=== PATIENT | female | born 1975 | race Two or more races ===

== ENCOUNTER 2018-01-20 09:23 | Emergency (ER) | payer SELFPAY ==
[2018-01-20 09:43] VITALS: O2SAT 100
--- NOTE | 2018-01-20 10:40 | C.PDOC ---
History Of Present Illness 42 y/o female presents to ED with c/o itchy scratchy throat associated with dry cough and with c/o of rash to fold of scar, groin area and under arms. Patient denies fever, chills, abdominal pain, nausea, vomiting or any other complaints at this time. Time Seen by Provider: 01/20/18 10:02 Chief Complaint (Nursing): Abnormal Skin Integrity History Per: Patient History/Exam Limitations: no limitations Onset/Duration Of Symptoms: Days Current Symptoms Are (Timing): Still Present Past Medical History Reviewed: Historical Data, Nursing Documentation, Vital Signs Vital Signs: Last Vital Signs Temp 97.8 F 01/20/18 09:40 Pulse 69 01/20/18 09:40 Resp 16 01/20/18 09:40 BP 123/66 01/20/18 09:40 Pulse Ox 100 01/20/18 10:57 - Medical History PMH: No Chronic Diseases Surgical History: No Surg Hx, (x 1) Family History: States: No Known Family Hx - Social History Hx Tobacco Use: No Hx Alcohol Use: No Hx Substance Use: No - Immunization History Hx Tetanus Toxoid Vaccination: No Hx Influenza Vaccination: No Hx Pneumococcal Vaccination: No Review Of Systems Constitutional: Negative for: Fever, Chills ENT: Positive for: Throat Pain Respiratory: Positive for: Cough Gastrointestinal: Negative for: Nausea, Vomiting Skin: Positive for: Rash Physical Exam - Physical Exam Appears: Non-toxic, No Acute Distress Skin: Warm, Dry, Rash (red, raised and pruritic to crease of abdomen along c- section scar, groin area and axilla ) Head: Atraumatic, Normacephalic Eye(s): bilateral: Normal Inspection Oral Mucosa: Moist Throat: Erythema, No Exudate, No Drooling Neck: Normal ROM, Supple Cardiovascular: Rhythm Regular Respiratory: Normal Breath Sounds, No Rales, No Rhonchi, No Wheezing Gastrointestinal/Abdominal: Soft, No Tenderness, No Guarding, No Rebound Neurological/Psych: Oriented x3, Normal Speech, Normal Cognition ED Course And Treatment O2 Sat by Pulse Oximetry: 100 (RA) Pulse Ox Interpretation: Normal Progress Note: Differential: Fungal infection VS Heart rash VS Urticaria. Claritin given for seasonal allergies and Antifungal oitment Disposition Counseled Patient/Family Regarding: Diagnosis, Need For Followup, Rx Given - Disposition Referrals: [facility] [Outside] Disposition: HOME/ ROUTINE Disposition Time: 10:36 Condition: STABLE Prescriptions: Loratadine [Claritin] 10 mg PO DAILY #15 tab Nystatin/Triamcinolone [Mycolog Ointment] 1 appl TP TID #1 tube Instructions: Seasonal Allergies in Adults, Skin Rash (DC) Forms: [facility] (Rw[place]an), Work Excuse - POA Present On Arrival: None - Clinical Impression Clinical Impression: Fungal infection, Seasonal allergies - Scribe Statement The provider has reviewed the documentation as recorded by the Scribevette Barrios All medical record entries made by the Yovanaibevette were at my direction and personally dictated by me. I have reviewed the chart and agree that the record accurately reflects my personal performance of the history, physical exam, medical decision making, and the department course for this patient. I have also personally directed, reviewed, and agree with the discharge instructions and disposition.
[2018-01-20 11:01] VITALS: BP 111/72; PULSE 62; RESP 18; TEMP 98.2
== END 2018-01-20 11:00 | disposition home or self-care (01) ==
LOC: C.ER 09:23
DX: J30.2 Other seasonal allergic rhinitis (principal); B49 Unspecified mycosis

== ENCOUNTER 2018-02-28 22:22 | Emergency (ER) | payer OTHER ==
[2018-02-28 22:40] VITALS: RESP 18; TEMP 99.1
[2018-02-28] MEDS ORDERED: Bacitracin 500 Units/gm Oint Foilpak UD TOP ONE (22:56)
[2018-02-28] MEDS ORDERED: Bacitracin 500 Units/gm Oint Foilpak UD ONE (23:08)
--- NOTE | 2018-02-28 23:33 | C.PDOC ---
History Of Present Illness Patient is a 42 y/o female who presents to the ED with a complaint of left lower leg pain that radiates to left foot. Patient reports to have been walking when she hit leg on an opening door (metal cellar door ) Denies any other injuries or physical complaints at this time. Time Seen by Provider: 02/28/18 22:40 Chief Complaint (Nursing): Lower Extremity Problem/Injury History Per: Patient History/Exam Limitations: no limitations Onset/Duration Of Symptoms: Hrs Current Symptoms Are (Timing): Still Present Recent travel outside of the [place]: No Past Medical History Reviewed: Historical Data, Nursing Documentation, Vital Signs Vital Signs: Last Vital Signs Temp 99.1 F 02/28/18 22:35 Pulse 80 02/28/18 23:47 Resp 18 02/28/18 23:47 BP 115/76 02/28/18 23:47 Pulse Ox 97 03/01/18 03:15 - Medical History PMH: No Chronic Diseases Surgical History: (x 1) Family History: States: No Known Family Hx - Social History Hx Tobacco Use: No Hx Alcohol Use: No Hx Substance Use: No - Immunization History Hx Tetanus Toxoid Vaccination: No Hx Influenza Vaccination: No Hx Pneumococcal Vaccination: No Review Of Systems Musculoskeletal: Positive for: Leg Pain (left lower leg), Foot Pain (pain radiated to left foot) Physical Exam - Physical Exam Appears: Non-toxic, No Acute Distress Skin: Normal Color, Warm, Dry, No Ecchymosis, Other (dime-sized abrasion to distal third of left tibia) Head: Atraumatic, Normacephalic Oral Mucosa: Moist Chest: Symmetrical Cardiovascular: Rhythm Regular, No Murmur Respiratory: Normal Breath Sounds, No Rales, No Rhonchi, No Wheezing Gastrointestinal/Abdominal: Soft, No Tenderness Extremity: Normal ROM (full range of motion of foot), Tenderness (surrounding abrasion on distal third of left tibia), No Swelling Pulses: Left Femoral: Normal, Left Dorsalis Pedis: Normal Neurological/Psych: Oriented x3, Normal Speech, Normal Cognition Gait: Steady ED Course And Treatment O2 Sat by Pulse Oximetry: 97 Progress Note: Bacitracin and ibuprofin adminsitered. Left tibia/fibula XR ordered. On re-eval, patient resting comfortably and stable for discharge. XR negative. Medical Decision Making Medical Decision Making: no fx noted on xray,. tdap utd. d/c with analgesics, Disposition Counseled Patient/Family Regarding: Studies Performed, Diagnosis, Need For Followup - Disposition Disposition: HOME/ ROUTINE Disposition Time: 23:32 Condition: GOOD Additional Instructions: Short ibuprofeno para el dolor segn lo recetado. Aplique bacitracin a la abrasi n 2 veces al da. Mantenga la pierna elevada cuando sea posible. Take ibuprofen for pain as prescribed., Apply bacitracin to abrasion 2 times a day. Keep leg elevated when possible. Prescriptions: Ibuprofen [Motrin] 600 mg PO TID #30 tab Instructions: Contusion (DC), Skin Abrasions (DC) Forms: Gen Discharge Inst Romanian, [facility] (Romanian) Print Language: MALAY - Clinical Impression Clinical Impression: Contusion of left lower leg, Abrasion of leg, left - Scribe Statement The provider has reviewed the documentation as recorded by the Scribe Nette Obrien All medical record entries made by the Yovanaibevette were at my direction and personally dictated by me. I have reviewed the chart and agree that the record accurately reflects my personal performance of the history, physical exam, medical decision making, and the department course for this patient. I have also personally directed, reviewed, and agree with the discharge instructions and disposition.
[2018-02-28 23:50] VITALS: BP 115/76; PULSE 80
[2018-03-01 03:11] VITALS: O2SAT 97
--- NOTE | 2018-03-01 18:03 | RAD ---
PROCEDURE: Radiographs of the left tibia and fibula. HISTORY: door hit woods COMPARISON: None available. TECHNIQUE: Frontal and lateral views obtained. FINDINGS: BONES: No fracture or destructive lesion. JOINT SPACES: Unremarkable. OTHER FINDINGS: None. IMPRESSION: Unremarkable radiographs of the left tibia and fibula.
== END 2018-02-28 23:50 | disposition home or self-care (01) ==
LOC: C.ER 22:22
DX: S80.12XA Contusion of left lower leg, initial encounter (principal); S80.812A Abrasion, left lower leg, initial encounter; W22.8XXA Striking against or struck by other objects, initial encounter